=== PATIENT | male | born 1975 | race African-American/Black ===

== ENCOUNTER 2019-12-28 19:09 | Emergency (ER) | payer BC ==
[2019-12-28] MEDS ORDERED: KETOROLAC TROMETHAMINE 30 MG/1 ML VIAL IVPUSH ONE (19:46)
[2019-12-28] MEDS ORDERED: SODIUM CHLORIDE 1,000 ML IV STA (19:46)
[2019-12-28] MEDS ORDERED: KETOROLAC TROMETHAMINE 30 MG/1 ML VIAL ONE (20:06)
[2019-12-28 20:11] VITALS: BP 138/94; PULSE 91; TEMP 98.8; BMI 30.5
[2019-12-28 20:24] LABS: EOS % 1.5 % (0-4.5); LYMPH % 25.2 % (8-40); MEAN CELL VOLUME 88.4 fl (80-96); MEAN PLT VOLUME 8.2 fl (7.5-11.1); MONO % 6.2 % (3.8-10.2); NEUT % 66.1 % (42.8-82.8); PLATELET COUNT 270 K/MM3 (134-434); RBC 5.32 M/mm3 (4.00-5.60); RDW 13.3 % (11.9-15.9); WHITE BLOOD COUNT 6.6 K/mm3 (4.0-10.8)
[2019-12-28 20:36] LABS: ALBUMIN 3.4 g/dl (3.4-5.0); BILIRUBIN,TOTAL 0.5 mg/dl (0.2-1); CALCIUM 7.5 mg/dl (8.5-10); CREATININE 0.9 mg/dl (0.55-1.3); POTASSIUM 3.4 mmol/L (3.5-5.1); TOT PROT 5.8 g/dl (6.4-8.2)
== END 2019-12-28 23:22 | disposition home or self-care (01) ==
LOC: FER 19:09
PROC: 3E0333Z Introduction of Anti-inflammatory into Peripheral Vein, Percutaneous Approach (ICD-10-PCS; principal; 2019-12-28)
PROC: 3E0337Z Introduction of Electrolytic and Water Balance Substance into Peripheral Vein, Percutaneous Approach (ICD-10-PCS; 2019-12-28)
DX: K38.8 Other specified diseases of appendix (principal)
CPT/HCPCS: 36415; 74177-TC; 80053; 81003; 85025; 99285-25; Q9967

== ENCOUNTER 2023-08-14 13:12 | Emergency (ER) | payer BC ==
[2023-08-14 13:27] VITALS: BMI 31.0
[2023-08-14] MEDS ORDERED: METOCLOPRAMIDE HCL INJECTION 10 MG/2 ML VIAL ONE (14:57)
[2023-08-14] MEDS ORDERED: ACETAMINOPHEN INJECTION 100 ML IVPB ONE (14:57)
[2023-08-14] MEDS: SODIUM CHLORIDE 1,000 ML IV ONE (15:00)
[2023-08-14] MEDS: METOCLOPRAMIDE HCL INJECTION 10 MG/2 ML VIAL IVPUSH ONE (15:03)
[2023-08-14] MEDS: ACETAMINOPHEN 1000 MG/100 ML BAG IVPB ONE (15:06)
[2023-08-14 15:20] LABS: HEMOGLOBIN 15.8 G/dL (11.7-16.9); MCH 27.9 pg (25.7-33.7); MCHC 32.3 g/dl (32.0-35.9); MEAN CELL VOLUME 86.4 fl (80-96); MEAN PLT VOLUME 8.2 fl (7.5-11.1); PLATELET COUNT 242.9 10^3/uL (134-434); RBC 5.67 10^6/uL (4.00-5.60); RDW 15.1 % (11.9-15.9); WHITE BLOOD COUNT 5.6 10^3/uL (4.0-10.8)
[2023-08-14 15:26] LABS: PLATELET ESTIMATE ADEQUATE
[2023-08-14 15:29] LABS: ALBUMIN 4.3 g/dl (3.4-5.0); BILIRUBIN,TOTAL 0.5 mg/dl (0.2-1); CALCIUM 9.5 mg/dl (8.5-10.1); CREATININE 1.1 mg/dl (0.6-1.3); POTASSIUM 4.4 mmol/L (3.5-5.1); TOT PROT 6.4 g/dl (6.4-8.2)
[2023-08-14 16:28] VITALS: BP 127/75; PULSE 77; RESP 18; TEMP 98.4
== END 2023-08-14 16:29 | disposition home or self-care (01) ==
LOC: FER 13:12
PROC: 3E033NZ Introduction of Analgesics, Hypnotics, Sedatives into Peripheral Vein, Percutaneous Approach (ICD-10-PCS; principal; 2023-08-14)
PROC: 3E033GC Introduction of Other Therapeutic Substance into Peripheral Vein, Percutaneous Approach (ICD-10-PCS; 2023-08-14)
PROC: 3E0337Z Introduction of Electrolytic and Water Balance Substance into Peripheral Vein, Percutaneous Approach (ICD-10-PCS; 2023-08-14)
DX: G44.209 Tension-type headache, unspecified, not intractable (principal); R11.0 Nausea; H53.8 Other visual disturbances
CPT/HCPCS: 36415; 70450-TC; 80053; 85027; 99284-25; J0131